=== PATIENT | female | born 1980 | race Caucasian/White ===

== ENCOUNTER 2019-10-11 14:03 | Emergency (ER) | payer BC ==
[~2019-10-11] VITALS: Ht 167.6 cm; Wt 61.4 kg
[~2019-10-11 14:03] MED LIST: DOCU-131 PO; IBUP-1222 PO; PNV91TAB3 PO
[2019-10-11 14:15] VITALS: BP 119/74
== END 2019-10-11 16:13 | disposition home or self-care (01) ==
LOC: ED 16:05
DX: S90.122A Contusion of left lesser toe(s) without damage to nail, initial encounter (principal); W19.XXXA Unspecified fall, initial encounter; Y93.89 Activity, other specified; Y92.098 Other place in other non-institutional residence as the place of occurrence of the external cause; Y99.8 Other external cause status
CPT/HCPCS: 99283